=== PATIENT | female | born 1940 | race Caucasian/White ===

== ENCOUNTER 2024-02-14 14:19 | Emergency (ER) | payer MEDICARE, OTHER ==
[~2024-02-14] VITALS: Ht 162.6 cm; Wt 65.9 kg
[2024-02-14 14:25] VITALS: TEMP 98
[2024-02-14 16:30] VITALS: BP 136/74; PULSE 86; RESP 16
== END 2024-02-14 16:52 | disposition home or self-care (01) ==
LOC: EMS 14:20
DX: M25.632 Stiffness of left wrist, not elsewhere classified (principal)
CPT/HCPCS: 99284